=== PATIENT | female | born 1965 | race Two or more races ===

== ENCOUNTER 2024-10-26 16:50 | Emergency (ER) | payer SELFPAY ==
[2024-10-26 16:51] VITALS: BMI 27.1
[2024-10-26 17:19] VITALS: BP 119/75; PULSE 82; RESP 18; TEMP 36.9; O2SAT 95
--- NOTE | 2024-10-26 17:20 | PD.EDRME ---
Rapid Medical Screening Exam RME Arrival date/time: 10/26/24 16:50 59-year-old female presents to the emergency department today for complaints of elevated blood sugar Chief Complaint: General Adult/Misc Complain Vital signs: Vital Signs Temperature 98.5 F 10/26/24 17:19 Pulse Rate 82 10/26/24 17:19 Respiratory Rate 18 10/26/24 17:19 Blood Pressure 119/75 10/26/24 17:19 Pulse Oximetry (%) 95 10/26/24 17:19 Oxygen Delivery Method Room Air 10/26/24 17:19
[2024-10-26 18:07] LABS: Collection Type, Urine Clean Catch
[2024-10-26 18:16] LABS: Base Excess, Venous 6 (-3-3); Basophils % (Auto) 0 % (0-2.5); Eosinophils # (Auto) 0.2 Thou/mm3 (0.0-0.5); Eosinophils % (Auto) 2 % (0-10); Hematocrit 39.6 % (36.0-46.0); Hemoglobin 14.1 g/dL (12.0-16.0); Immature Granulocytes % (Auto) 0 % (0-0); Immature Granulocytes Auto 0.04 Thou/mm3 (0.00-0.00); Lymphocytes # (Auto) 2.5 Thou/mm3 (1.0-4.8); Lymphocytes % (Auto) 23 % (10-50); Mean Corpuscular HGB Conc 35.6 g/dl (31.0-37.0); Mean Corpuscular Hemoglobin 32.5 pg (25.0-35.0); Mean Corpuscular Volume 91 fL (80-100); Monocytes # (Auto) 0.9 Thou/mm3 (0.0-0.8); Monocytes % (Auto) 8 % (0-12); Neutrophils # (Auto) 7.4 Thou/mm3 (1.8-7.7); Neutrophils % (Auto) 67 % (37-80); Nucleated Red Blood Cell % 0 /100 WBC (0); O2 Saturation, Venous 82 % (96-97); PCO2, Venous 44 mmHg (36-56); PO2, Venous 43 mmHg (15-58); Platelet Count 291 Thou/mm3 (140-440); RDW Standard Deviation 38.5 fL (36.4-46.3); Red Blood Count 4.34 Miln/mm3 (4.00-5.20); pH, Venous 7.44 (7.33-7.66)
[2024-10-26 18:49] LABS: Alanine Aminotransferase 21 U/L (10-49); Albumin, Serum 4.8 gm/dL (3.5-5.0); Albumin/Globulin Ratio 1.3 (1.2-2.2); Alkaline Phosphatase 108 U/L (46-116); Anion Gap 12 (7-16); Aspartate Amino Transferase 18 U/L (0-34); BUN/Creatinine Ratio 18 Ratio (12-20); Beta HCG,Quantitative 4 mIU/mL (<5.0); Bilirubin,Total 0.6 mg/dL (0.3-1.2); Blood Urea Nitrogen 20 mg/dL (9-23); Calcium 10.9 mg/dL (8.3-10.6); Calcium (Corrected) 10.9 mg/dL (8.5-10.1); Carbon Dioxide 27.6 mMol/L (20.0-31.0); Chloride 94 mMol/L (98-107); Creatinine (Component) 1.1 mg/dL (0.6-1.3); Estimated Creatinine Clearance 60.2 mL/min (>60); Globulin 3.8 gm/dL (2.3-3.5); Osmolality,Calculated 287 (275-295); Potassium 3.7 mMol/L (3.4-5.1); Sodium 134 mMol/L (136-145); Total Protein 8.6 gm/dL (5.7-8.2); eGFR 58 See Note
[2024-10-26 18:54] LABS: Glucose 412 mg/dL (74-106)
[2024-10-26 19:10] LABS: Bacteria,Urine Rare; Bilirubin,Urine Negative (Negative); Blood,Urine 1+ (Negative); Clarity,Urine Turbid (Clear/Hazy); Color,Urine Yellow (Lt Yel-Yel); Glucose, Urine 4+ (Negative); Hyaline Casts,Urine < 1 /hpf (0-1); Ketones,Urine Trace (Negative); Leukocyte Esterase,Urine Positive (Negative); Nitrite,Urine Negative (Negative); Protein,Urine 2+ (Neg - Trace); RBC,Urine 6 /hpf (0-3); Specific Gravity,Urine 1.026 (1.001-1.035); Squamous Epithelial Cell,Urine 7 /hpf (0-5); Urobilinogen,Urine Negative mg/dL (0.0-1.0); WBC,Urine 39 /hpf (0-5)
[2024-10-26 19:11] LABS: Culture Indicated,Urine Yes
[2024-10-26 19:28] LABS: Magnesium 2.6 mg/dL (1.6-2.6)
[2024-10-26 19:38] LABS: Glucose Estimated Average 298 mg/dL (80-131)
[2024-10-26 21:28] VITALS: BP 128/72; PULSE 72; RESP 17; TEMP 36.6; O2SAT 97
--- NOTE | 2024-10-26 22:50 | PD.EDADULT ---
ED General RME/HPI General Chief complaint: General Adult/Misc Complain Stated complaint: SENT BY PCP HIGH SUGAR Source: patient Arrival date/time: 10/26/24 16:50 Mode of arrival: ambulatory Limitations: no limitations RME / HPI RME / HPI narrative: 10/26/24 16:50 59-year-old female presents to the emergency department today for complaints of elevated blood sugar. Dr. Capellan?s Main ED Evaluation: 59-year-old female with a history of type 2 diabetes mellitus, sent to the ED by her PCP for evaluation of a hyperglycemic event. The patient states that during a routine follow-up, a fingerstick glucose check revealed significantly elevated blood sugar. Despite receiving insulin and being observed for approximately 20 minutes, there was no improvement, prompting referral to the ED for further evaluation. The patient reports compliance to her diabetes medications. She endorses dizziness, which has improved upon examination. Denies chest pain, shortness of breath, nausea, vomiting, abdominal pain, or other acute concerns. Related Data Previous Rx's ?Medication ?Instructions ?Recorded nitrofurantoin 100 mg PO Q12H 7 days #14 caps 10/27/24 monohydrate/macrocrystals 100 mg capsule (Macrobid) Allergies Allergy/AdvReac Type Severity Reaction Status Date / Time No Known Allergies Allergy Verified 10/26/24 21:36 Review of Systems Review of Systems Systems Reviewed: All systems reviewed, normal except as documented Past Medical History Social History SMOKING STATUS: Never smoker ED Exam General Limitations: Present no limitations General appearance: Present alert and in no apparent distress Head Head exam: Present atraumatic Eye Eye exam: Present normal appearance, PERRL and EOMI ENT ENT exam: Present normal exam, normal oropharynx and mucous membranes moist Neck Neck exam: Present normal inspection, full ROM and trachea midline Chest Chest inspection: Present normal inspection and symmetric chest wall rise Respiratory Respiratory exam: Present normal lung sounds bilaterally Cardiovascular Cardiovascular exam: Present regular rate, normal rhythm and normal heart sounds Abdominal Exam Abdominal exam: Present soft and normal bowel sounds Extremities Exam Extremities exam: Present normal inspection and full ROM Back Exam Back exam: Present normal inspection and full ROM Neurological Exam Neurological exam: Present alert, oriented X3 and CN II-XII intact Psychiatric Psychiatric exam: Present normal affect and normal mood Skin Skin exam: Present warm, dry, intact and normal color Course Quality Measures none Orders Category Date Time Status Fingerstick [Bedside Blood Glucose] NOW Care 10/26/24 23:12 Completed A1C [Glycohemoglobin w (eAG)] Stat Lab 10/26/24 17:50 Completed Beta HCG,Quantitative Stat Lab 10/26/24 17:50 Completed CBC Stat Lab 10/26/24 17:50 Completed Comprehensive Metabolic Panel Stat Lab 10/26/24 17:50 Completed Mag [Magnesium] Stat Lab 10/26/24 17:50 Completed UA, C/S IF [Urinalysis, C/S if Indicated] Stat Lab 10/26/24 17:15 Completed Urine Culture Stat Lab 10/26/24 17:15 Received VBG [Venous Blood Gas] Stat Lab 10/26/24 17:50 Completed Insulin Regular Med 10/26/24 23:23 Discontinued 10 unit IV X1 ONE Insulin Regular Med 10/26/24 21:30 Discontinued 10 unit SC X1 ONE Potassium Chloride [K-Dur] Med 10/26/24 23:22 Discontinued 40 meq PO X1 ONE Sodium Chloride 0.9% 1000 ml [Ns] 1,000 ml Med 10/26/24 21:30 Discontinued IV 999 mls/hr Sodium Chloride 0.9% 1000 ml [Ns] 1,000 ml Med 10/26/24 21:30 Discontinued IV 999 mls/hr cefTRIAXone/D5w 1gm IV premix [Rocephin/D5w 1gm IV Med 10/26/24 23:05 Discontinued premix] 50 ml IV X1 Vital Signs Vital signs: Vital Signs Temperature 98.5 F 10/26/24 17:19 Pulse Rate 82 10/26/24 17:19 Respiratory Rate 18 10/26/24 17:19 Blood Pressure 119/75 10/26/24 17:19 Pulse Oximetry (%) 95 10/26/24 17:19 Oxygen Delivery Method Room Air 10/26/24 17:19 Procedures -ED Procedure Comment According to my interpretation, the chest X-ray shows a dual chamber pacemaker with leads in place, cardiomegaly, sharp costophrenic angles, and mild pulmonary vascular congestion. MDM Patient data External records reviewed:: [facility] previous records Clinical information provided by:: patient Social determinants that could affect healthcare access:: none Patient has the following chronic illnesses:: see PMH How is presenting disease/condition affected by chronic disease/condition?: uneffected by Evaluation data The following diagnostics were reviewed and interpreted by me:: lab results Lab and/or radiology exams considered but not ordered:: hermann Interpretation Summary: see narrative Medications Medications considered but not ordered:: na Medication administrations:: Medication Administration History Discontinued Medications Sodium Chloride (Ns) 1,000 mls @ 999 mls/hr IV .Q1H1M ONE Stop: 10/26/24 22:30 Last Infusion: 10/27/24 01:28 Dose: Infused Documented By: Admin: 10/26/24 23:07 Dose: 999 mls/hr Documented By: ENMA Sodium Chloride (Ns) 1,000 mls @ 999 mls/hr IV .Q1H1M ONE Stop: 10/26/24 22:30 Last Infusion: 10/27/24 01:29 Dose: Infused Documented By: Admin: 10/26/24 23:08 Dose: 999 mls/hr Documented By: ENMA Ceftriaxone Sodium/Dextrose (Rocephin/D5w 1gm Iv Premix) 50 mls @ 100 mls/hr IV X1 ONE Stop: 10/26/24 23:34 Last Infusion: 10/27/24 01:28 Dose: Infused Documented By: Admin: 10/26/24 23:27 Dose: 100 mls/hr Documented By: ENMA Insulin Human Regular (Insulin Hum Regular 1 Unit/0.01 Ml (Per Unit)) 10 unit SC X1 ONE Stop: 10/26/24 21:31 Last Admin: 10/26/24 23:40 Dose: Not Given Documented By: ENMA Non-Admin Reason: Cancelled by Provider Insulin Human Regular (Insulin Hum Regular 1 Unit/0.01 Ml (Per Unit)) 10 unit IV X1 ONE Stop: 10/26/24 23:24 Last Admin: 10/26/24 23:38 Dose: 10 unit Documented By: ENMA Co-signed By: SCOTT Potassium Chloride (Potassium Chloride 20 Meq Tabcr) 40 meq PO X1 ONE Stop: 10/26/24 23:23 Last Admin: 10/26/24 23:38 Dose: 40 meq Documented By: ENMA as above, if any Consultations Consultation(s) initiated? (list below): No Diagnosis Differential Diagnosis ED Complaint MDM: Hyperglycemia, DKA, Hyperosmolar state, UTI, Sepsis, PNA, Med noncompliance Most likely diagnosis given after review of the tests above:: Hyperglycemia Admission Indicated Admission indicated?: not indicated Explain why admission is indicated or not indicated:: no abnormal findings Admission Request Was there a request for admission?: No Disposition Plan Disposition Plan: Discharge Discharge Attestation Discharge Attestation: The patient and all family members were given an opportunity to ask questions and understood the discharge instructions. Discharge instructions specifically effects, indications for sooner follow up or return to the emergency department, and the expected course of current diagnosis. Patient condition: Stable Medical Decision Making MDM Narrative MDM Narrative: No leukocystosis Normal pH Anion gap is 12 No ketonemia +UA Hyperglycemia 412 Potassium 3.7 Magnesium 2.6 Will give her potassium and insulin. Will treat UTI with Rocephin. Fingerstick blood glucose re-check at 2320 is 478 Fingerstick blood glucose re-check at 0100 is 311 Fingerstick blood glucose re-check at 0152 is 338 Scribe Attestation: I, Jordyn Naavs, am scribing for and in the presence of Dr. Capellan. Provider Notation: Although this document has been carefully reviewed, there may still be some phonetic and other typographical errors. These errors are purely grammatical due to imperfections in the software program and should not be construed in any way to compromise the substance of the patient's medical care during this visit. Differential Diagnosis Differential Diagnosis: Hyperglycemia, DKA, Hyperosmolar state, UTI, Sepsis, PNA, Med noncompliance Medical Records Medical records reviewed: Yes I reviewed the patient's medical records. Lab Data Lab results reviewed: Yes I reviewed the patient's lab results. 10/26/24 17:50 10/26/24 17:50 Labs: Lab Results 10/26/24 10/26/24 Range/Units 17:15 17:50 WBC 11.0 (3.6-11.0) Thou/mm3 RBC 4.34 (4.00-5.20) Miln/mm3 Hgb 14.1 (12.0-16.0) g/dL Hct 39.6 (36.0-46.0) % MCV 91 (80-100) fL MCH 32.5 (25.0-35.0) pg MCHC 35.6 (31.0-37.0) g/dl RDW Std Deviation 38.5 (36.4-46.3) fL Plt Count 291 (140-440) Thou/mm3 Neut % (Auto) 67 (37-80) % Lymph % (Auto) 23 (10-50) % [place] % (Auto) 8 (0-12) % Eos % (Auto) 2 (0-10) % Baso % (Auto) 0 (0-2.5) % Neut # (Auto) 7.4 (1.8-7.7) Thou/mm3 Lymph # (Auto) 2.5 (1.0-4.8) Thou/mm3 [place] # (Auto) 0.9 H (0.0-0.8) Thou/mm3 Eos # (Auto) 0.2 (0.0-0.5) Thou/mm3 Baso # (Auto) 0.0 (0.0-0.2) Thou/mm3 Immature Gran # (Auto) 0.04 H (0.00-0.00) Thou/mm3 Absolute Nucleated RBC 0.00 (0.00-0.00) Thou/mm3 Immature Gran % 0 (0-0) % Nucleated RBC % 0 (0) /100 WBC VBG pH 7.44 (7.33-7.66) VBG pCO2 44 (36-56) mmHg VBG pO2 43 (15-58) mmHg VBG O2 Sat (Donna) 82 L (96-97) % VBG Base Excess 6 H (-3-3) Sodium 134 L (136-145) mMol/L Potassium 3.7 (3.4-5.1) mMol/L Chloride 94 L (98-107) mMol/L Carbon Dioxide 27.6 (20.0-31.0) mMol/L Anion Gap 12 (7-16) BUN 20 (9-23) mg/dL Creatinine 1.1 (0.6-1.3) mg/dL Estim Creat Clear Calc 60.2 L (>60) mL/min eGFR 58 L (60 - ) See Note BUN/Creatinine Ratio 18 (12-20) Ratio Glucose 412 H* (74-106) mg/dL Estimated Ave Glu mg/dL 298 H (80-131) mg/dL Hemoglobin A1c 12.0 H (4.8-6.0) % Hgb Calculated Osmolality 287 (275-295) Calcium 10.9 H (8.3-10.6) mg/dL Corrected Calcium 10.9 H (8.5-10.1) mg/dL Magnesium 2.6 (1.6-2.6) mg/dL Total Bilirubin 0.6 (0.3-1.2) mg/dL AST 18 (0-34) U/L ALT 21 (10-49) U/L Alkaline Phosphatase 108 (46-116) U/L Total Protein 8.6 H (5.7-8.2) gm/dL Albumin 4.8 (3.5-5.0) gm/dL Globulin 3.8 H (2.3-3.5) gm/dL Albumin/Globulin Ratio 1.3 (1.2-2.2) Beta HCG, Quant 4 (<5.0) mIU/mL Ur Collection Type Clean Catch Urine Color Yellow (Lt Yel-Yel) Urine Clarity Turbid A (Clear/Hazy) Urine pH 6.0 (5.0-7.0) Ur Specific [place] 1.026 (1.001-1.035) Urine Protein 2+ A (Neg - Trace) Urine Glucose (UA) 4+ A (Negative) Urine Ketones Trace (Negative) Urine Blood 1+ A (Negative) Urine Nitrite Negative (Negative) Urine Bilirubin Negative (Negative) Urine Urobilinogen (Auto) Negative (0.0-1.0) mg/dL Ur Leukocyte Esterase Positive (Negative) Urine RBC 6 H (0-3) /hpf Urine WBC 39 H (0-5) /hpf Ur Squamous Epith Cells 7 H (0-5) /hpf Urine Bacteria Rare (None) Hyaline Casts < 1 (0-1) /hpf Ur Culture Indicated? Yes Discharge Plan Plan Patient Disposition: HOME (Self Care) Disposition Comment: Stable for discharge home Patient condition on transfer: Stable Prescriptions/Referrals Prescriptions/Med Rec: New nitrofurantoin monohyd/m-cryst [Macrobid] 100 mg capsule 100 mg PO Q12H 7 Days Qty: 14 0RF Rx Instructions: must administer with a meal/food Referrals: [facility] [Outside] - In 1 week Problem List Clinical Impression: Urinary tract infection, Acute hyperglycemia Patient/Caregiver Discharge Instructions Discharge Activity: activity as tolerated Education Materials: High Blood Sugar (Hyperglycemia), How to Check Your Blood Sugar, Urinary Tract Infections in Women, Glucose Check Steps Additional Instructions: Please return to the emergency department if you have any worsening or any further medical problems and we will help you. Otherwise you should follow-up with your primary care doctor within the next several days Please go to your pharmacy and garbage pick up man your prescription for Macrobid. This is your antibiotic. You take this twice per day until they are completely gone even if you are feeling better before that please Print Language: Vincentian Stand Alone Forms: Anyi Award Info., Patient Portal Info Letter
[2024-10-26] MEDS: SODIUM CHLORIDE 0.9% 1000 ML 1,000 ML 999 ML IV ×2 (23:07→23:08)
[2024-10-26] MEDS: cefTRIAXone/D5w 1gm IV premix 50 ML IV (23:27)
[2024-10-26 23:30] VITALS: BP 124/62; PULSE 66; RESP 18; TEMP 36.8; O2SAT 95
[2024-10-26] MEDS: INSULIN HUM REGULAR 1 UNIT/0.01 ML (PER UNIT) 10 UNIT IV (23:38)
[2024-10-26] MEDS: POTASSIUM CHLORIDE 20 mEq TABCR 40 MEQ PO (23:38)
[2024-10-27 00:22] VITALS: BP 124/62; PULSE 80; RESP 18; TEMP 36.6; O2SAT 96
[2024-10-27 01:46] VITALS: BP 131/71; PULSE 78; PULSE 86; RESP 18; TEMP 36.8; O2SAT 98
== END 2024-10-27 02:09 | disposition home or self-care (01) ==
PROVIDERS: Nurse Practitioner Primary Care; Emergency Provider Emergency Medicine
DX: E11.65 Type 2 diabetes mellitus with hyperglycemia (principal); R33.9 Retention of urine, unspecified
CPT/HCPCS: 36415; 80053; 81001; 82803; 83036; 83735; 84702; 85025; 87086; 99284; J0696; J1815; J7030; A9270